=== PATIENT | female | born 1995 | race African-American/Black ===

== ENCOUNTER 2020-05-04 15:46 | Emergency (ER) | payer MEDICAID, OTHER ==
[~2020-05-04] VITALS: Ht 167.6 cm; Wt 82.0 kg
[2020-05-04] MEDS ORDERED: KETOROLAC 30MG/ML VIAL IM ONE (16:45)
[2020-05-04 17:41] VITALS: BP 135/79
== END 2020-05-04 17:44 | disposition home or self-care (01) ==
LOC: ER 15:46
DX: S29.012A Strain of muscle and tendon of back wall of thorax, initial encounter (principal); S20.212A Contusion of left front wall of thorax, initial encounter; Z88.8 Allergy status to other drugs, medicaments and biological substances; Z98.890 Other specified postprocedural states; Z90.49 Acquired absence of other specified parts of digestive tract; Z90.89 Acquired absence of other organs; V49.88XA Car occupant (driver) (passenger) injured in other specified transport accidents, initial encounter; Y93.89 Activity, other specified; Y92.89 Other specified places as the place of occurrence of the external cause; Y99.8 Other external cause status
CPT/HCPCS: 71101; 72070; 81025; 96372; 99284; J1885